=== PATIENT | female | born 1985 | race Caucasian/White ===

== ENCOUNTER 2017-07-01 00:13 | Emergency (ER) | payer SELFPAY ==
--- NOTE | 2017-07-01 00:33 | ED.PDOC ---
History of Present Illness - General Chief Complaint: Problem Stated Complaint: burning on urination, blood also Time Seen by Provider: 07/01/17 00:32 Source: patient Exam Limitations: no limitations - History of Present Illness Initial Comments: Amanda Swan 32 y/o female stated that she had onset of burning pain on urination tonight.No fever no chills .Denies history of STI. Timing/Duration: this evening Quality: burning Radiation: suprapubic Activites at Onset: none Prior abdominal problems: none Sexual intercourse history: not active Improving Factors: nothing Worsening Factors: nothing Associated Symptoms: denies symptoms Allergies/Adverse Reactions: Allergies NO KNOWN ALLERGY Allergy (Verified 07/01/17 00:30) Home Medications: Ambulatory Orders Norethindrone (Contraceptive) [Laya] 0.35 mg PO DAILY #3 pack 11/05/13 Levofloxacin [Levaquin] 250 mg PO DAILY #10 tab 07/01/17 Phenazopyridine HCl [Pyridium] 200 mg PO BID PRN #10 tab 07/01/17 Review of Systems - Review of Systems Constitutional: States: no symptoms reported EENTM: States: no symptoms reported Respiratory: States: no symptoms reported Gastrointestinal/Abdominal: States: no symptoms reported Genitourinary: States: see HPI, dysuria All other Systems: Reviewed and Negative, No Change from Baseline Past Medical History (General) - Patient Medical History Hx Stroke: No Hx Congestive Heart Failure: No Hx Diabetes: No Hx Renal Disease: No Surgical History: other - LEEP - Vaccination History Hx Tetanus, Diphtheria Vaccination: Yes Hx Influenza Vaccination: No Hx Pneumococcal Vaccination: No - Social History Hx Tobacco Use: No Hx Substance Use: No Hx Physical Abuse: No Hx Emotional Abuse: No - Female History Patient is a Female of Child Bearing Age (10 -59 yrs old): Yes Hx Last Menstrual Period: 04/21/17 - OCP Patient : No Family Medical History - Family History Mother Name: Saloni manjarrez Age (years): 46 Living Status: Still Living Hx Family Asthma: No Hx Family Congestive Heart Failure: No Hx Family Hypertension: No Hx Family Stroke: No Hx Cardiac Disease: No Hx Family Diabetes: Yes - grandmother Hx Family Cancer: Yes - breast-grandparent Father Name: Vipin Donahue Moncho Hx Family Asthma: No Hx Family Congestive Heart Failure: Yes Hx Family Hypertension: Yes Hx Family Stroke: Yes Hx Cardiac Disease: Yes Hx Family Diabetes: Yes - grandmother Hx Family Cancer: Yes - grandmother with Breast CA Sister Family History: No Known Name: Danilo Juarez Age (years): 25 Living Status: Still Living Hx Family Asthma: No Hx Family Congestive Heart Failure: No Hx Family Hypertension: No Hx Family Stroke: No Hx Cardiac Disease: No Hx Family Diabetes: No Hx Family Cancer: No Physical Exam - Physical Exam General Appearance: Alert, Comfortable, No apparent distress Eyes, Ears, Nose, Throat Exam: normal ENT inspection Neck: supple Cardiovascular/Respiratory: regular rate, rhythm, no M/R/G, normal peripheral pulses, normal breath sounds Gastrointestinal/Abdominal: normal bowel sounds, non tender, soft Extremity: no pedal edema, no calf tenderness Neurologic: alert, oriented x 3 Skin Exam: normal color, warm/dry Progress - Progress Progress: 07/01/17 00:49 Vital Signs - 8 hr 07/01/17 00:31 Temperature 99.1 F Pulse Rate [ 111 H left] Respiratory 20 Rate Blood Pressure 131/85 [left] O2 Sat by Pulse 99 Oximetry - Results/Orders Results/Orders: 07/01/17 00:30 URINALYSIS Stat 07/01/17 00:55 URINE CULTURE W/COLONY COUNT Stat Laboratory Results - last 24 hr 07/01/17 00:30 Urine Color Red H Urine Appearance Cloudy Urine pH 7.0 Ur Specific [place] 1.025 Urine Protein 100 H Urine Glucose (UA) Negative Urine Ketones Trace Urine Blood Large H Urine Nitrite Negative Urine Bilirubin Small H Urine Urobilinogen 0.2 Ur Leukocyte Esterase Moderate H Urine RBC Tntc H Urine WBC Tntc H Ur Epithelial Cells 0-1 Urine Bacteria 1+ Departure - Departure Clinical Impression: Cystitis, acute hemorrhagic, Dysuria Time of Disposition: 00:57 Disposition: Discharge to Home or Self Care Condition: Good Departure Forms: ED Discharge - Pt. Copy, Patient Portal Self Enrollment Instructions: DI for Hemorrhagic Cystitis, Acute Cystitis Referrals: Ray Goodman MD [Primary Care Provider] - 1-2 Weeks Prescriptions: Levofloxacin [Levaquin] 250 mg PO DAILY #10 tab Phenazopyridine HCl [Pyridium] 200 mg PO BID PRN #10 tab PRN Reason: pain on urination Home Medications: Ambulatory Orders Norethindrone (Contraceptive) [Laya] 0.35 mg PO DAILY #3 pack 11/05/13 Levofloxacin [Levaquin] 250 mg PO DAILY #10 tab 07/01/17 Phenazopyridine HCl [Pyridium] 200 mg PO BID PRN #10 tab 07/01/17 Additional Instructions: [place] with primary Md 03 July 2017 as needed;Drink extra fluids
[2017-07-01 00:41] VITALS: BP 131/85; O2SAT 99
[2017-07-01] MEDS ORDERED: PHENAZOPYRIDINE HCL 200 MG TAB PO ONE (00:51)
[2017-07-01] MEDS ORDERED: levoFLOXacin 500 MG TAB PO ONE (00:51)
[2017-07-01 01:09] VITALS: TEMP 98.6
== END 2017-07-01 01:09 | disposition home or self-care (01) ==
LOC: ER 00:13
DX: N30.01 Acute cystitis with hematuria (principal)

== ENCOUNTER 2019-08-03 19:05 | Emergency (ER) | payer SELFPAY ==
[2019-08-03] MEDS ORDERED: KETOROLAC TROMETHAMINE INJ 30 MG/ML VIAL IM ONE (19:29)
[2019-08-03] MEDS ORDERED: PROMETHAZINE HCL INJ 25 MG in SODIUM CHLORIDE 0.9% 50ML 50 ML IVPB ONE (19:29)
[2019-08-03] MEDS ORDERED: SODIUM CHLORIDE 0.9% 1000ML 1,000 ML IVS ONE (19:29)
[2019-08-03] MEDS ORDERED: PROMETHAZINE HCL INJ 25 MG/ML VIAL ONE (19:33)
[2019-08-03] MEDS ORDERED: SODIUM CHLORIDE 0.9% 50ML 50 ML ONE (19:34)
--- NOTE | 2019-08-03 20:15 | RAD ---
EXAM DESCRIPTION: XR Abdomen Series CLINICAL HISTORY: left sided abd and flank pain 3 hours TECHNIQUE: Two views of the abdomen and frontal view of the chest are submitted. COMPARISON: KUB dated 07/17/2018 and chest x-ray dated 05/31/2015 FINDINGS: Heart: The cardiac silhouette is within normal limits. Lungs: No focal consolidation. Mediastinum: Unremarkable Pleura: Unremarkable Bowel: Gas is seen throughout the large bowel to the level of the rectum. No dilation. Calcifications: Clustered calcifications project over the renal shadows bilaterally, left greater than right compatible with calculi. There is a 5 mm calculus more medially located projecting above the left L3 transverse process, new from the prior. Bones: Intact IMPRESSION: 5 mm calculus projecting above the left L3 transverse process which may be located within the left renal pelvis or at the ureteropelvic junction. Electronically signed by: Dacia Barr MD 08/03/2019 8:14 PM CDT
[2019-08-03 21:16] VITALS: TEMP 97.4
[2019-08-03] MEDS ORDERED: HYDROcodone 7.5MG/APAP 325MG 1 EA TAB PO ONE (21:16)
[2019-08-03] MEDS ORDERED: CIPROFLOXACIN 500 MG TAB PO ONE (21:36)
[2019-08-03] MEDS ORDERED: CYCLOBENZAPRINE HCL 5 MG TAB PO ONE (21:36)
[2019-08-03] MEDS ORDERED: TAMSULOSIN 0.4 MG CAP PO ONE (21:36)
--- NOTE | 2019-08-03 21:40 | ED.PDOC ---
History of Present Illness - General Chief Complaint: Abdominal Pain Stated Complaint: left sided abdominal pain and left lower back Time Seen by Provider: 08/03/19 19:29 Source: patient Exam Limitations: no limitations - History of Present Illness Initial Comments: The patient is a 34-year-old female presented emergency room secondary to acute onset severe left flank pain radiating to the mid abdomen on that side. It is associated with several episodes of nausea and vomiting. She did have some diaphoresis. She has passed kidney stones in the past. She denies any . No syncope or near syncope. No chest pain. No palpitations. Timing/Duration: 1-3 hours Severity: severe Improving Factors: nothing Worsening Factors: nothing Associated Symptoms: diaphoresis, loss of appetite, malaise, nausea/vomiting Allergies/Adverse Reactions: Allergies NO KNOWN ALLERGY Allergy (Verified 07/01/17 00:30) Home Medications: Ambulatory Orders Norethindrone (Contraceptive) [Laya] 0.35 mg PO DAILY #3 pack 11/05/13 Levofloxacin [Levaquin] 250 mg PO DAILY #10 tab 07/01/17 Phenazopyridine HCl [Pyridium] 200 mg PO BID PRN #10 tab 07/01/17 Ondansetron Tab [Zofran Tab] 4 mg PO Q4HR PRN #20 tab 07/17/18 Tramadol HCl 50 mg PO Q4HR PRN #20 tab 07/17/18 Ciprofloxacin [Cipro] 500 mg PO BID #10 tab 08/03/19 Cyclobenzaprine HCl [Flexeril] 5 mg PO TID PRN #14 tab 08/03/19 Tamsulosin HCl [Flomax] 0.4 mg PO DAILY #14 cap 08/03/19 Review of Systems - Review of Systems Constitutional: States: malaise EENTM: States: no symptoms reported Respiratory: States: no symptoms reported Cardiology: States: no symptoms reported Gastrointestinal/Abdominal: States: abdominal pain, nausea, vomiting Genitourinary: States: frequency Musculoskeletal: States: back pain Skin: States: no symptoms reported Neurological: States: no symptoms reported Endocrine: States: excessive sweating All other Systems: No Change from Baseline Past Medical History (General) - Patient Medical History Hx Seizures: No Hx Stroke: No Hx Dementia: No Hx Asthma: No Hx of COPD: No Hx Cardiac Disorders: No Hx Congestive Heart Failure: No Hx Pacemaker: No Hx Hypertension: No Hx Thyroid Disease: No Hx Diabetes: No Hx Gastroesophageal Reflux: No Hx Renal Disease: No Hx Cancer: No Hx of HIV: No Hx Hepatitis C: No Hx MRSA: No Surgical History: other - Vaccination History Hx Tetanus, Diphtheria Vaccination: No Hx Influenza Vaccination: No Hx Pneumococcal Vaccination: No Immunizations Up to Date: No - Social History Hx Tobacco Use: No Hx Chewing Tobacco Use: No Hx Alcohol Use: No Hx Substance Use: No Hx Substance Use Treatment: No Hx Depression: No Feels Threatened In Home Enviroment: No Feels Threatened In a Relationship: No Hx Physical Abuse: No Hx Emotional Abuse: No Hx Suspected Abuse: No - Female History Patient is a Female of Child Bearing Age (10 -59 yrs old): Yes Hx Last Menstrual Period: 08/03/19 Patient : No Expected Date of Delivery:: 10/30/13 Family Medical History - Family History Mother Name: Saloni manjarrez Age (years): 46 Living Status: Still Living Hx Family Asthma: No Hx Family Congestive Heart Failure: No Hx Family Hypertension: No Hx Family Stroke: No Hx Cardiac Disease: No Hx Family Diabetes: Yes - grandmother Hx Family Cancer: Yes - breast-grandparent Father Name: Vipin Donahue Moncho Hx Family Asthma: No Hx Family Congestive Heart Failure: Yes Hx Family Hypertension: Yes Hx Family Stroke: Yes Hx Cardiac Disease: Yes Hx Family Diabetes: Yes - grandmother Hx Family Cancer: Yes - grandmother with Breast CA Sister Family History: No Known Name: Caitjean claudequang Ann Age (years): 25 Living Status: Still Living Hx Family Asthma: No Hx Family Congestive Heart Failure: No Hx Family Hypertension: No Hx Family Stroke: No Hx Cardiac Disease: No Hx Family Diabetes: No Hx Family Cancer: No Physical Exam - Physical Exam General Appearance: Alert, Obvious distress Eye Exam: bilateral normal Ears, Nose, Throat: hearing grossly normal, normal ENT inspection Neck: full range of motion, supple Respiratory: lungs clear, normal breath sounds, no respiratory distress, no accessory muscle use Cardiovascular/Chest: normal peripheral pulses, regular rate, rhythm, no edema Peripheral Pulses: radial,right: 2+, radial,left: 2+, dorsalis pedis,right: 2+, dorsalis pedis,left: 2+ Gastrointestinal/Abdominal: non tender, soft Rectal Exam: deferred Back Exam: CVA tenderness (R) Extremity: normal range of motion, non-tender, normal inspection, no pedal edema, normal capillary refill Neurologic: riveter hand II-XII nml as tested, alert, normal mood/affect, oriented x 3 Skin Exam: diaphoresis Comments: Vital Signs - 24 hr 08/03/19 08/03/19 08/03/19 19:17 20:05 20:11 Temperature 97.2 F L 97.2 F L Pulse Rate [ 96 H 84 83 monitor] Respiratory 18 18 18 Rate Blood Pressure 146/99 141/103 [Left Radial Artery] O2 Sat by Pulse 95 Oximetry 08/03/19 21:00 Temperature 97.4 F L Pulse Rate [ 96 H monitor] Respiratory 18 Rate Blood Pressure 126/84 [Left Radial Artery] O2 Sat by Pulse 99 Oximetry Progress - Progress Progress: 08/03/19 21:41 The patient is a 34-year-old female presenting to the emergency room with severe acute onset left flank and abdominal pain. X-ray of the abdomen and urinalysis are consistent with a ureteral stone. The patient was given pain and nausea medications along with a liter of fluids. There are few bacteria in the urinalysis so the patient will be placed on ciprofloxacin for the next 5 days. She needs to increase her fluid intake. She is going to be placed on Flomax daily for the next 2 weeks. She will also be placed on Flexeril for as needed use to help reduce pain. ER warnings are given for any significant worsening. If the patient is still having discomfort after a week then a repeat evaluation and additional studies may be warranted. [email or web address] hanna [phone] - Results/Orders Results/Orders: X-ray of the abdomen pelvis shows multiple punctate foci in the kidneys. There appears to be a 5 mm stone in the upper ureter on the left. See report for details. laboratory Tests 08/03/19 08/03/19 08/03/19 19:45 19:45 19:45 WBC 10.3 RBC 5.10 Hgb 14.2 Hct 41.1 MCV 80.5 L MCH 27.7 MCHC 34.4 RDW 12.3 Plt Count 358 MPV 7.8 Absolute Neuts (auto) 6.10 Absolute Lymphs (auto) 3.30 Absolute Monos (auto) 0.60 Absolute Eos (auto) 0.20 Absolute Basos (auto) 0.10 Neutrophils % 59.2 Lymphocytes % 31.7 Monocytes % 6.2 Eosinophils % 2.0 Basophils % 0.9 Sodium 136 Potassium 4.2 Chloride 103 Carbon Dioxide 23 Anion Gap 14.2 BUN 13 Creatinine 0.66 BUN/Creatinine Ratio 19.7 Random Glucose 94 Serum Osmolality 271.8 L Lactic Acid 1.7 Calcium 9.0 Total Bilirubin 0.3 AST 19 ALT 16 Alkaline Phosphatase 64 Creatine Kinase 74 CK-MB (CK-2) 0.9 CK-MB (CK-2) % Not Reportable Troponin I < 0.02 B-Natriuretic Peptide 8.5 Serum Total Protein 8.2 Albumin 4.2 Globulin 4.0 H Albumin/Globulin Ratio 1.1 Amylase 95 Lipase 31 Serum HCG, Qual Urine Color Urine Appearance Urine pH Ur Specific [place] Urine Protein Urine Glucose (UA) Urine Ketones Urine Blood Urine Nitrite Urine Bilirubin Urine Urobilinogen Ur Leukocyte Esterase Urine RBC Urine WBC Ur Epithelial Cells Urine Bacteria 08/03/19 08/03/19 19:45 20:20 WBC RBC Hgb Hct MCV MCH MCHC RDW Plt Count MPV Absolute Neuts (auto) Absolute Lymphs (auto) Absolute Monos (auto) Absolute Eos (auto) Absolute Basos (auto) Neutrophils % Lymphocytes % Monocytes % Eosinophils % Basophils % Sodium Potassium Chloride Carbon Dioxide Anion Gap BUN Creatinine BUN/Creatinine Ratio Random Glucose Serum Osmolality Lactic Acid Calcium Total Bilirubin AST ALT Alkaline Phosphatase Creatine Kinase CK-MB (CK-2) CK-MB (CK-2) % Troponin I B-Natriuretic Peptide Serum Total Protein Albumin Globulin Albumin/Globulin Ratio Amylase Lipase Serum HCG, Qual Negative Urine Color Yellow Urine Appearance Turbid Urine pH 7.0 Ur Specific [place] 1.025 Urine Protein 30 Urine Glucose (UA) Negative Urine Ketones Trace Urine Blood Large H Urine Nitrite Negative Urine Bilirubin Negative Urine Urobilinogen 0.2 Ur Leukocyte Esterase Trace H Urine RBC Tntc H Urine WBC 3-5 H Ur Epithelial Cells 3-5 Urine Bacteria 2+ H - EKG/XRAY/CT CT Ordered: No Departure - Departure Clinical Impression: Ureterolithiasis Disposition: Discharge to Home or Self Care Condition: Fair Departure Forms: ED Discharge - Pt. Copy, Patient Portal Self Enrollment Instructions: Kidney Stones (DC) Diet: regular diet Activity: increase activity as tolerated Referrals: Ray Goodman MD [Primary Care Provider] - 1-2 Weeks Prescriptions: Ciprofloxacin [Cipro] 500 mg PO BID #10 tab Cyclobenzaprine HCl [Flexeril] 5 mg PO TID PRN #14 tab PRN Reason: Muscle Spasms Tamsulosin HCl [Flomax] 0.4 mg PO DAILY #14 cap Home Medications: Ambulatory Orders Norethindrone (Contraceptive) [Laya] 0.35 mg PO DAILY #3 pack 11/05/13 Levofloxacin [Levaquin] 250 mg PO DAILY #10 tab 07/01/17 Phenazopyridine HCl [Pyridium] 200 mg PO BID PRN #10 tab 07/01/17 Ondansetron Tab [Zofran Tab] 4 mg PO Q4HR PRN #20 tab 07/17/18 Tramadol HCl 50 mg PO Q4HR PRN #20 tab 07/17/18 Ciprofloxacin [Cipro] 500 mg PO BID #10 tab 08/03/19 Cyclobenzaprine HCl [Flexeril] 5 mg PO TID PRN #14 tab 08/03/19 Tamsulosin HCl [Flomax] 0.4 mg PO DAILY #14 cap 08/03/19 Additional Instructions: The patient is a 34-year-old female presenting to the emergency room with severe acute onset left flank and abdominal pain. X-ray of the abdomen and urinalysis are consistent with a ureteral stone. The patient was given pain and nausea medications along with a liter of fluids. There are few bacteria in the urinalysis so the patient will be placed on ciprofloxacin for the next 5 days. She needs to increase her fluid intake. She is going to be placed on Flomax daily for the next 2 weeks. She will also be placed on Flexeril for as needed use to help reduce pain. ER warnings are given for any significant worsening. If the patient is still having discomfort after a week then a repeat evaluation and additional studies may be warranted.
[2019-08-03 22:07] VITALS: BP 136/65; O2SAT 100
== END 2019-08-03 21:57 | disposition home or self-care (01) ==
LOC: ER 19:05
DX: N20.1 Calculus of ureter (principal); R11.2 Nausea with vomiting, unspecified; R10.9 Unspecified abdominal pain
CPT/HCPCS: 36415; 74019; 80053; 81001; 82150; 82550; 82553; 83605; 83690; 83880; 84484; 84703; 85025; 93005; A4216; J1885; J2550; J7030